=== PATIENT | male | born 1945 | race Two or more races ===

== ENCOUNTER 2022-03-03 05:45 | Day surgery (SDC) | payer OTHER ==
[~2022-03-03] VITALS: Ht 172.7 cm; Wt 60.3 kg
[~2022-03-03 05:45] MED LIST: ACID REDUCER20 M1 PO; HYOSCYAMINE0.125 M1 SL; INTESTINEX680 M1 PO; LATANOPROST2.5 ML; LOSARTAN POTASS50 MG PO; MELOXICAM15 MG; NORVASC2.5 MG PO; ROSUVASTATIN CAL5 MG PO; ULTRACET PO
[2022-03-03] MEDS ORDERED: ULTRACET PO (11:06)
== END 2022-03-03 13:25 | disposition home or self-care (01) ==
LOC: CIR.AMB 05:45
PROVIDERS: ATTEND Surgery
DX: C18.9 Malignant neoplasm of colon, unspecified (principal); I10 Essential (primary) hypertension; E78.5 Hyperlipidemia, unspecified; D69.6 Thrombocytopenia, unspecified; N18.30 Chronic kidney disease, stage 3 unspecified; E78.00 Pure hypercholesterolemia, unspecified
CPT/HCPCS: 36561; C1788